=== PATIENT | male | born 1965 | race Caucasian/White ===

== ENCOUNTER 2019-03-12 14:52 | Emergency (ER) | payer OTHER ==
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
== END 2019-03-12 17:50 | disposition expired ==
LOC: ER 15:26 → MERGE 15:26 → ER 17:50
DX: I46.9 Cardiac arrest, cause unspecified (principal); S09.93XA Unspecified injury of face, initial encounter
CPT/HCPCS: 31500; 92950; 94002; 94770; 99285; J0171

== ENCOUNTER → 2019-03-12 | Outpatient (CLI) | payer OTHER | LOC: AMB 14:03 → MERGE 14:03 | PROVIDERS: ATTEND Nurse Practitioner | DX: R41.82 Altered mental status, unspecified (principal); S01.112A Laceration without foreign body of left eyelid and periocular area, initial encounter; M79.661 Pain in right lower leg; M79.621 Pain in right upper arm; R07.89 Other chest pain; V43.52XA Car driver injured in collision with other type car in traffic accident, initial encounter; W22.11XA Striking against or struck by driver side automobile airbag, initial encounter | CPT/HCPCS: A0425; A0427 ==